=== PATIENT | male | born 1995 | race Hispanic/Latino ===

== ENCOUNTER 2023-03-07 14:55 | Emergency (ER) | payer OTHER ==
[~2023-03-07] VITALS: Ht 160 cm; Wt 84.8 kg
[2023-03-07] MEDS ORDERED: LIDOCAINE HCL 1% 20 ML VIAL ONE (17:25)
[2023-03-07] MEDS ORDERED: LIDOCAINE HCL 1% 20 ML VIAL INJ SCH (17:30)
[2023-03-07 19:22] VITALS: BP 128/78; PULSE 72; RESP 20; O2SAT 98
== END 2023-03-07 19:26 | disposition home or self-care (01) ==
LOC: EDH 14:55
DX: S61.512A Laceration without foreign body of left wrist, initial encounter (principal); W26.0XXA Contact with knife, initial encounter; Y93.89 Activity, other specified; Y92.89 Other specified places as the place of occurrence of the external cause; Y99.8 Other external cause status
CPT/HCPCS: 12002; 73100